=== PATIENT | female | born 1995 | race Hispanic/Latino ===

== ENCOUNTER 2019-05-06 21:59 | Inpatient (IN) | payer MEDICAID, OTHER ==
[~2019-05-06] VITALS: Ht 149.9 cm; Wt 82.3 kg
[2019-05-06] MEDS ORDERED: ACETAMINOPHEN EXTRA STRENGTH 500 MG TABLET ONE (22:26)
[2019-05-06] MEDS ORDERED: SODIUM CHLORIDE 0.9% 1000ML 2,000 ML IV ONE (22:27)
[2019-05-06] MEDS ORDERED: CEFTRIAXONE SODIUM 1 GM ONE (22:34)
[2019-05-06 22:35] LABS: BASOPHILS % (AUTO) 0.3 % (0.0-5.0); EOSINOPHILS % (AUTO) 0.1 % (0.0-8.0); HEMATOCRIT 35.7 % (36-48); LYMPHOCYTES % (AUTO) 5.4 % (21.0-51.0); MEAN CORPUSCULAR HGB CONC 33.6 g/dL (32.0-36.0); MEAN CORPUSCULAR VOLUME 83.2 fL (79-99); MONOCYTES % (AUTO) 10.4 % (3.0-13.0); NEUTROPHILS % (AUTO) 83.4 % (40.0-77.0); PLATELET COUNT (AUTO) 281 K/uL (130-400); RED BLOOD CELL COUNT(AUTO) 4.29 MIL/uL (4.00-5.50); RED CELL DISTRIBUTION WIDTH 11.9 % (11.0-15.5); WHITE BLOOD COUNT (AUTO) 18.1 K/uL (4.8-10.8)
[2019-05-06 22:52] LABS: APPEARANCE,URINE Cloudy (CLEAR); BILIRUBIN,URINE Small (NEGATIVE); COLOR,URINE Dark Yellow (YELLOW); GLUCOSE, URINE (UA) Negative (NEGATIVE); KETONES,URINE 15 mg/dL (NEGATIVE); LEUKOCYTE ESTERASE ,URINE Moderate (NEGATIVE); NITRATE,URINE Positive (NEGATIVE); OCCULT BLOOD,URINE Large (NEGATIVE); PH,URINE 5.5 (5.0-8.0); PROTEIN,URINE POS 2+ mg/dL (NEGATIVE)
[2019-05-06 22:57] LABS: CARBON DIOXIDE 27 mmol/L (21-32); CHLORIDE 96 mmol/L (101-111); GLOMERULAR FILTR. RATE CALC 73 mL/min (>60); GLUCOSE,RANDOM 132 mg/dL (70-105); POTASSIUM 3.2 mmol/L (3.5-5.1); SODIUM SERUM 134 mmol/L (136-145); UREA NITROGEN, BLOOD 9 mg/dL (7-18)
[2019-05-06 23:05] LABS: BACTERIA,URINE Moderate /HPF (None Seen); MUCUS,URINE None Seen LPF (None Seen); SQUAMOUS EPITHELIAL CELL,UR None Seen /HPF (0-2); YEAST,URINE BUDDING Few /HPF (None Seen)
[2019-05-06 23:10] LABS: ALANINE AMINOTRANSFERASE 51 U/L (12-78); ALBUMIN 3.7 g/dL (3.5-5.0); ASPARTATE AMINOTRANSFERASE 21 U/L (10-37); BILIRUBIN,TOTAL 1.7 mg/dL (0.2-1.0); CREATINE KINASE, TOTAL 54 U/L (21-232); MYOGLOBIN 31 ng/mL (10-92); TOTAL PROTEIN, SERUM 8.4 g/dL (6.0-8.3); TROPONIN I < 0.04 ng/mL (0.00-0.06)
[2019-05-07] MEDS ORDERED: LEVOFLOXACIN 750 MG/D5W 150 ML 150 ML ONE (00:10)
[2019-05-07] MEDS ORDERED: IBUPROFEN 600 MG TABLET ONE (00:10)
[2019-05-07] MEDS ORDERED: ONDANSETRON HCL 4 MG/2 ML VIAL ONE (00:39)
[2019-05-07] MEDS ORDERED: SODIUM CHLORIDE 0.9% 1000ML 1,000 ML IV ONE ×2 (00:39→02:34)
[2019-05-07] MEDS: SODIUM CHLORIDE 0.9% 1000ML 1,000 ML IV SCH ×3 (01:17→19:05)
[2019-05-07] MEDS ORDERED: LACTULOSE 20 GM/30 ML UDCUP PO PRN (01:30)
[2019-05-07] MEDS ORDERED: ACETAMINOPHEN 325 MG TAB PO PRN ×2 (01:30→23:45)
[2019-05-07] MEDS ORDERED: POTASSIUM CHLORIDE 10MEQ/100ML 100 ML IV PRN (01:30)
[2019-05-07] MEDS ORDERED: POTASSIUM CHLORIDE 10% ELIXIR 20 MEQ/15 ML UDCUP PO PRN (01:30)
[2019-05-07] MEDS ORDERED: LIDOCAINE HCL-MPF 1% 2ML VIAL IV PRN (01:30)
[2019-05-07] MEDS ORDERED: ONDANSETRON HCL 4 MG/2 ML VIAL IV PRN (01:30)
[2019-05-07] MEDS ORDERED: ZOSYN 3.375GM+NS 50ML 50 ML IV ONE (01:32)
[2019-05-07] MEDS ORDERED: CEFTRIAXONE SODIUM 1 GM IVP SCH (01:45)
[2019-05-07 02:10] VITALS: BP 111/58
[2019-05-07] MEDS ORDERED: ZOSYN 3.375GM+NS 50ML 50 ML IV SCH (05:00)
[2019-05-07 06:30] LABS: BASOPHILS % (AUTO) 0.2 % (0.0-5.0); EOSINOPHILS % (AUTO) 0.1 % (0.0-8.0); HEMATOCRIT 29.2 % (36-48); LYMPHOCYTES % (AUTO) 7.1 % (21.0-51.0); MEAN CORPUSCULAR HEMOGLOBIN 27.7 pg (27.0-33.0); MEAN CORPUSCULAR HGB CONC 32.9 g/dL (32.0-36.0); MEAN CORPUSCULAR VOLUME 84.4 fL (79-99); PLATELET COUNT (AUTO) 204 K/uL (130-400); RED BLOOD CELL COUNT(AUTO) 3.46 MIL/uL (4.00-5.50); WHITE BLOOD COUNT (AUTO) 16.8 K/uL (4.8-10.8)
[2019-05-07 06:36] LABS: CREATININE 0.8 mg/dL (0.5-1.5); POTASSIUM 3.6 mmol/L (3.5-5.1)
[2019-05-07 08:00] VITALS: BP 111/67
--- NOTE | 2019-05-07 10:02 | NUR ---
DR. STOKES PAGED
[2019-05-07] MEDS: FAMOTIDINE 20MG TAB 20 MG TAB PO SCH ×2 (10:17→21:38)
[2019-05-07] MEDS: ACETAMINOPHEN 325 MG TAB PO PRN ×2 (10:18→23:02)
--- NOTE | 2019-05-07 11:53 | NUR ---
INITIAL Patient lives with spouse, Yogi Regalado and their 3 year old daughter. No home services or DME. Patient is able to complete ADL's independently and drives. 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 No PCP. Pharmacy is [facility] located on [address]. DCP is home. Patient has no insurance or benefits. She is a [place] citizen and has worked in the [place]. Patient was provided with community resources for post hospitalization follow up. Patient was also provided with Good RX card for prescriptions and educated on [employer] $4 medication program and [employer] $5 medication program. Addendum: 05/07/19 at 1155 by ROLO MARIA SS Amended: Links added.
[2019-05-07 12:00] VITALS: BP 125/78
--- NOTE | 2019-05-07 12:00 | NUR ---
DR. STOKES AT BEDSIDE ORDERS ENTERED.
[2019-05-07] MEDS: ZOSYN 3.375GM+NS 50ML 50 ML IV SCH ×2 (14:22→21:39)
[2019-05-07 16:00] VITALS: BP 148/72
--- NOTE | 2019-05-07 16:01 | NUR ---
DR. TRAVIS AWARE OF T[place]Y, TEMP 100.2 STATES MAY GIVE TYLENOL AND CONTINUE FLUIDS.
--- NOTE | 2019-05-07 18:30 | NUR ---
temp of 102.2 covered with tylenol given, b/c done, ice packs
--- NOTE | 2019-05-07 19:01 | NUR ---
dr. brown aware of temp of 102.2 order blood cultures.
[2019-05-07 19:49] VITALS: BP 133/79
[2019-05-07] MEDS ORDERED: MORPHINE SULFATE 2 MG/ML 1ML SYG IVP PRN (21:00)
[2019-05-07 23:36] VITALS: BP 109/75
[2019-05-07 23:51] LABS: HEMATOCRIT 28.3 % (36-48); MEAN CORPUSCULAR HEMOGLOBIN 28.6 pg (27.0-33.0); MEAN CORPUSCULAR HGB CONC 34.3 g/dL (32.0-36.0); MEAN CORPUSCULAR VOLUME 83.5 fL (79-99); PLATELET COUNT (AUTO) 211 K/uL (130-400); RED BLOOD CELL COUNT(AUTO) 3.39 MIL/uL (4.00-5.50); RED CELL DISTRIBUTION WIDTH 11.9 % (11.0-15.5)
[2019-05-08] MEDS: SODIUM CHLORIDE 0.9% 1000ML 1,000 ML IV SCH ×4 (03:23→20:43)
[2019-05-08 04:00] VITALS: BP 114/65
[2019-05-08] MEDS: ZOSYN 3.375GM+NS 50ML 50 ML IV SCH ×3 (05:07→20:42)
[2019-05-08 05:27] LABS: BASOPHILS % (AUTO) 0.3 % (0.0-5.0); EOSINOPHILS % (AUTO) 0.3 % (0.0-8.0); HEMATOCRIT 27.7 % (36-48); LYMPHOCYTES % (AUTO) 11.8 % (21.0-51.0); MEAN CORPUSCULAR HGB CONC 33.2 g/dL (32.0-36.0); MEAN CORPUSCULAR VOLUME 84.2 fL (79-99); MONOCYTES % (AUTO) 12.2 % (3.0-13.0); NEUTROPHILS % (AUTO) 74.6 % (40.0-77.0); PLATELET COUNT (AUTO) 200 K/uL (130-400); RED BLOOD CELL COUNT(AUTO) 3.29 MIL/uL (4.00-5.50); RED CELL DISTRIBUTION WIDTH 11.9 % (11.0-15.5); WHITE BLOOD COUNT (AUTO) 18.9 K/uL (4.8-10.8)
[2019-05-08 05:47] LABS: CREATININE 0.8 mg/dL (0.5-1.5); POTASSIUM 3.2 mmol/L (3.5-5.1)
[2019-05-08 08:00] VITALS: BP 137/76
[2019-05-08] MEDS: ACETAMINOPHEN 325 MG TAB PO PRN ×2 (10:00→18:01)
[2019-05-08] MEDS: FAMOTIDINE 20MG TAB 20 MG TAB PO SCH ×2 (10:00→20:42)
[2019-05-08 12:00] VITALS: BP 114/71
[2019-05-08] MEDS: KETOROLAC TROMETHAMINE 15MG/ML IV PRN ×2 (12:57→18:01)
[2019-05-08 16:00] VITALS: BP 143/87
[2019-05-08 20:00] VITALS: BP 128/74
[2019-05-09] VITALS: BP 129/75
--- NOTE | 2019-05-09 03:30 | NUR ---
DURING ROUTINE V/S, PATIENT NOTED WITH FLUCTUATING O2 SATS AT ROOM AIR. DECREASED O2 SATS DOWN TO MID 80'S AND INCREASING UP TO 95-97%. PATIENT DENIES SHORTNESS OF BREATH, NO CYANOSIS OR BODY EDEMA NOTED AT PRESENT. CALLED RT TO CONFIRM DECREASED O2 SATS AND CONFIRMED FLUCTUATING O2 SATS. STUART ALVAREZ N.P. WAS CALLED AND NEW ORDERS GIVEN.
[2019-05-09 04:00] VITALS: BP 150/87
[2019-05-09 05:35] LABS: BASOPHILS % (AUTO) 0.3 % (0.0-5.0); EOSINOPHILS % (AUTO) 1.3 % (0.0-8.0); HEMATOCRIT 26.7 % (36-48); LYMPHOCYTES % (AUTO) 10.5 % (21.0-51.0); MEAN CORPUSCULAR HEMOGLOBIN 27.7 pg (27.0-33.0); MEAN CORPUSCULAR HGB CONC 33.7 g/dL (32.0-36.0); MEAN CORPUSCULAR VOLUME 82.2 fL (79-99); MONOCYTES % (AUTO) 6.1 % (3.0-13.0); PLATELET COUNT (AUTO) 252 K/uL (130-400); RED BLOOD CELL COUNT(AUTO) 3.25 MIL/uL (4.00-5.50); WHITE BLOOD COUNT (AUTO) 13.4 K/uL (4.8-10.8)
[2019-05-09 06:23] LABS: CREATININE 0.7 mg/dL (0.5-1.5); MAGNESIUM 1.6 mg/dL (1.80-2.40)
[2019-05-09] MEDS: ZOSYN 3.375GM+NS 50ML 50 ML IV SCH ×3 (06:55→21:21)
[2019-05-09 08:00] VITALS: BP 136/74
[2019-05-09] MEDS ORDERED: MAGNESIUM 2GM PREMIX 50ML 50 ML IV ONE (08:00)
--- NOTE | 2019-05-09 08:10 | NUR ---
DR. CHANG MADE AWARE OF DECREASED O2 SATS EARLY THIS AM, FURTHER ORDERS GIVEN. ALSO MADE AWARE OF DECREASED MAG 1.6, NEW ORDER GIVEN.
[2019-05-09] MEDS ORDERED: MAGNESIUM 2GM PREMIX 50ML 50 ML IV SCH (08:15)
[2019-05-09] MEDS: FAMOTIDINE 20MG TAB 20 MG TAB PO SCH ×2 (08:48→21:21)
[2019-05-09] MEDS: POTASSIUM CHLORIDE 20 MEQ ERTAB PO PRN ×3 (08:49→15:37)
[2019-05-09] MEDS ORDERED: MAGNESIUM 2GM PREMIX 50ML 50 ML IV PRN (09:01)
[2019-05-09 12:00] VITALS: BP 129/68
[2019-05-09 15:26] LABS: CREATININE 0.7 mg/dL (0.5-1.5)
[2019-05-09 16:00] VITALS: BP 138/69
[2019-05-09 20:00] VITALS: BP 154/86
[2019-05-10] VITALS: BP 147/73
[2019-05-10] MEDS: POTASSIUM CHLORIDE 20 MEQ ERTAB PO PRN ×4 (02:06→13:27)
[2019-05-10 03:55] VITALS: BP 134/75
[2019-05-10] MEDS: ZOSYN 3.375GM+NS 50ML 50 ML IV SCH ×2 (05:43→13:26)
[2019-05-10 06:13] LABS: BASOPHILS % (AUTO) 0.4 % (0.0-5.0); EOSINOPHILS % (AUTO) 2.9 % (0.0-8.0); HEMATOCRIT 26.5 % (36-48); LYMPHOCYTES % (AUTO) 23.4 % (21.0-51.0); MEAN CORPUSCULAR HEMOGLOBIN 27.6 pg (27.0-33.0); MEAN CORPUSCULAR HGB CONC 33.6 g/dL (32.0-36.0); MONOCYTES % (AUTO) 12.2 % (3.0-13.0); NEUTROPHILS % (AUTO) 60.1 % (40.0-77.0); PLATELET COUNT (AUTO) 278 K/uL (130-400); RED BLOOD CELL COUNT(AUTO) 3.23 MIL/uL (4.00-5.50); RED CELL DISTRIBUTION WIDTH 11.9 % (11.0-15.5); WHITE BLOOD COUNT (AUTO) 8.2 K/uL (4.8-10.8)
[2019-05-10 06:36] LABS: CREATININE 0.8 mg/dL (0.5-1.5); POTASSIUM 3.3 mmol/L (3.5-5.1)
[2019-05-10 07:56] VITALS: BP 134/79
[2019-05-10] MEDS: FAMOTIDINE 20MG TAB 20 MG TAB PO SCH (09:16)
[2019-05-10 10:47] VITALS: BP 132/82
[2019-05-10 15:21] VITALS: BP 137/87
[2019-05-10] MEDS ORDERED: LEVO500T2 PO (18:24)
--- NOTE | 2019-05-10 18:44 | NUR ---
DISCHARGE INSTRUCTIONS GIVEN TO PATIENT, MADE AWARE OF NEW RX FOR LEVAQUIN SENT TO HER PHARMACY. AWARE OF NEED TO FOLLOW UP WITH [facility] IN 3-5 DAYS. PATIENT AT THIS TIME DENIES ANY PAIN OR DIFFICULTY URINATING. PATIENT AMBULATING IN ROOM WITH NO DIFFICULTIES. NO FEVER. IV REMOVED. PATIENT WILL BE TRANSPORTED HOME BY FAMILY
[2019-05-10 20:00] VITALS: BP 137/85
--- NOTE | 2019-05-10 21:40 | NUR ---
DISCHARGE-PATIENT AAOX3, NO ACUTE DISTRESS NOTED, DENIES DISCOMFORT AT PRESENT. PATIENT'S RIDE IS HERE AND PATIENT READY TO GO HOME.
== END 2019-05-10 21:40 | disposition home or self-care (01) | DRG 872 ==
LOC: EDH 21:59 → EDHIP 22:00 → 3AH 05-07 01:39
PROVIDERS: ADMIT Internal Medicine; ATTEND Internal Medicine
DX: A41.9 Sepsis, unspecified organism (principal); N13.6 Pyonephrosis; E87.6 Hypokalemia; B96.20 Unspecified Escherichia coli [E. coli] as the cause of diseases classified elsewhere; E83.42 Hypomagnesemia; E66.01 Morbid (severe) obesity due to excess calories; Z68.36 Body mass index [BMI] 36.0-36.9, adult; Z83.3 Family history of diabetes mellitus
CPT/HCPCS: 36415; 71045; 74176; 80048; 80053; 81001; 81025; 82550; 83605; 83735; 83874; 83880; 84145; 84484; 85025; 85027; 87040; 87077; 87088; 87186; 87804; 93005; G0378; J0696; J1885; J1956; J2405; J2543; J3475; J7030